=== PATIENT | male | born 1950 | race Caucasian/White ===

== ENCOUNTER 2017-01-28 05:55 | Day surgery (SDC) | payer BC ==
[~2017-01-28] VITALS: Ht 175.3 cm; Wt 77.4 kg
[~2017-01-28 05:55] MED LIST: ALEVE220 M1 PO; ASPIRIN EC81 MG; BUSPIRONE HCL15 MG PO; CLARITIN10 MG PO; ESCITALOPRAM OX20 MG PO; FARXIGA10 MG PO; FLONASE ALLERG9.9 ML NS; GLIPIZIDE XL10 MG PO; IBUPROFEN800 MG PO; JANUVIA100 MG PO; LISINOPRIL10 MG PO; METFORMIN HCL500 MG PO; MINIPRESS1 MG PO; NORCO 10-325 T1 EACH PO; OXYCODONE HCL5 MG PO; SIMVASTATIN20 MG PO; TERBINAFINE HC250 MG PO
--- NOTE | 2017-01-28 07:47 | NUR ---
PT RESTING COMFORTABLY-ALERT AND ORIENTED. PT MENTIONED HE HAD 2 DAYS OF PREP BECAUSE OF A SCHEDULING ERROR ON HIS PART-SEEMED TO TAKE EVERYTHING IN STRIDE. SCOPE TODAY IS "ROUTINE". HE HAS HAD PREVIOUS SCOPES, NO NEEDS AT THIS POINT EXCEPT TO GO TO THE BATHROOM FOLLOWING PRAYER.
--- NOTE | 2017-01-28 08:17 | NUR ---
01/28/17 0817 Calista Elizondo 0811-PATIENT ARRIVED TO PACU ON 6L OXYMASK O2 SAT 97% PATIENT NONAROUSABLE. LAYING ON LEFT LATERAL SIDE. SR. GLUCOSE CHECKED 143
--- NOTE | 2017-01-30 14:06 | OR ---
[facility] [address], [place] [address] Signed DATE OF SERVICE: 01/28/2017 PREOPERATIVE DIAGNOSIS: Screening. POSTOPERATIVE DIAGNOSES: A 5-mm sessile polyp at proximal right colon. Right and left-sided jyfknca-kh-wrmcgtmx diverticulosis. PROCEDURE: Colonoscopy with hot biopsy and placement of clip. ESTIMATED BLOOD LOSS: Minimal. INDICATIONS: John is a 66-year-old gentleman who came to us for a followup screening colonoscopy. He had a negative screening colonoscopy around 55 while living in [place]. In the meantime, he has no lower GI complaints. There was no family history of colon cancer or polyps. I met with John in the office and I gave him a pamphlet on colonoscopy. We reviewed the nature of the test along with its risks including, but not limited to gas bloating, crampy abdominal pain, bleeding, perforation requiring surgery, and missed diagnosis. We also discussed the need for IV conscious sedation. He had expressed understanding and wished to proceed. PROCEDURE NOTE: John was taken into our endoscopy suite and placed in the left lateral decubitus position. Given his daily need for buspirone and escitalopram in conjunction with his obsessive-compulsive disorder, we knew our standard Versed and fentanyl would not be enough to get him asleep. Consequently, we had our anesthesia provider help us with infusion of propofol. Once he was adequately sedated, digital rectal exam was performed. It does have some induration to his prostate consistent with his age. The adult colonoscope was introduced and advanced all around into the cecum under direct visualization of the camera. We did use some abdominal compression in the left lower quadrant in order to advance the scope. The prep was good. We saw a diverticulum opposite the ileocecal valve and just 1 or 2 folds past the ileocecal valve, he had a sessile polyp on the ascending colon. We removed it with several bites of the hot biopsy forceps. It did bleed a little, so we went ahead and placed a clip and that stopped the bleeding quite nicely. The scope was then slowly withdrawn and we saw no other polyps in the colon or rectum. He does have diverticula in the sigmoid colon and again they are moderate in size and jfuetzz-bo-abrbedyv in number and scattered about. The rectum itself was unremarkable. Upon retroflexion of the scope, we did not see any additional pathology above the anal canal. After this, the gas was suctioned out and the colonoscope removed. John tolerated procedure quite well. Electronically Signed By: SAM GUTIERREZ MD 01/30/17 1406 PATIENT NAME: JOHN GIBSON OPERATIVE REPORT DATE OF : 54 PHYSICIAN: SAM GUTIERREZ MD REPORT #: [id number] REPORT IS CONFIDENTIAL AND NOT TO BE RELEASED WITHOUT AUTHORIZATION [facility] [address] [place] [id number] Signed RECOMMENDATIONS: I will see Constantino back in my office in 7-14 days to review his results. MD ENRIQUE Sin/Elisabetl /[id number] cc: MD Lazaro Sin Electronically Signed By: SAM GUTIERREZ MD 01/30/17 1406 PATIENT NAME: JOHN GIBSON OPERATIVE REPORT DATE OF : 54 PHYSICIAN: SAM GUTIERREZ MD REPORT #: [id number] REPORT IS CONFIDENTIAL AND NOT TO BE RELEASED WITHOUT AUTHORIZATION
== END 2017-01-28 08:56 | disposition home or self-care (01) ==
LOC: DS 05:55 → OPS 05:55 → DS 06:45 → OPS 08:56
PROVIDERS: Colon & Rectal Surgery
PROC: 0DBK8ZX Excision of Ascending Colon, Via Natural or Artificial Opening Endoscopic, Diagnostic (ICD-10-PCS; principal; 2017-01-28 06:45)
DX: Z12.11 Encounter for screening for malignant neoplasm of colon (principal); D12.2 Benign neoplasm of ascending colon; I10 Essential (primary) hypertension; E78.5 Hyperlipidemia, unspecified; E11.9 Type 2 diabetes mellitus without complications; F10.21 Alcohol dependence, in remission; Z86.19 Personal history of other infectious and parasitic diseases; Z98.890 Other specified postprocedural states; Z79.899 Other long term (current) drug therapy
CPT/HCPCS: 00810; J2250; J3010; J7120

== ENCOUNTER → 2017-05-19 | Emergency (ER) | payer BC, OTHER ==
[~2017-05-19] VITALS: Ht 175.3 cm; Wt 77.4 kg
== END ==
LOC: ED 14:06
DX: M54.16 Radiculopathy, lumbar region (principal); G89.29 Other chronic pain; E11.9 Type 2 diabetes mellitus without complications; Z87.891 Personal history of nicotine dependence; Z79.84 Long term (current) use of oral hypoglycemic drugs; Z79.899 Other long term (current) drug therapy
CPT/HCPCS: 99283

== ENCOUNTER 2022-06-12 08:49 | Observation (INO) | payer MEDICARE, BC, OTHER ==
[~2022-06-12] VITALS: Ht 175.3 cm; Wt 72.6 kg
--- OUTSIDE RECORDS SUMMARY | 2022-06-12 08:52 | XMS ---
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 Melissa has no Care Guidelines for this patient. Claudia VISIT COUNT (12 MO.) 1 ALEKSEY Paz TOTAL 1 NOTE: Visits indicate total known visits. ED/UCC VISIT TRACKING (12 MO.) 06/12/2022 08:50 [facility] [place] TYPE: Emergency COMPLAINT: - ABNORMAL LABS INPATIENT VISIT TRACKING (12 MO.) No inpatient visits to display in this time frame [email or web address]
[2022-06-12] MEDS ORDERED: BELBUCA600 MCG SL (09:14)
--- NOTE | 2022-06-12 17:50 | NUR ---
PT RESTING AND EATING DINNER. PT WATCHING TV. PT DENIES CONCERNS.
[2022-06-12] MEDS ORDERED: DULCOLAX STOOL100 M1 PO (18:44)
--- NOTE | 2022-06-12 18:49 | NUR ---
PT UP TO BATHROOM AND BOWEL MOVEMENT NOTED. MEDICATION GIVEN. PT CALLED BROTHER. ALL QUESTIONS ANSWERED AND CALL LIGHT WITHIN REACH.
--- NOTE | 2022-06-12 19:48 | NUR ---
Received report from offgoing shift, hourly rounding initiated
--- NOTE | 2022-06-12 22:50 | NUR ---
IN PT ROOM FOR ROUNDING. PT RESTING ON BACK, BREATHING EVEN AND UNLABORED. NO INDICATIONS OF PAIN OR DISCOMFORT. CALL LIGHT IN REACH
--- NOTE | 2022-06-13 00:12 | NUR ---
IN PT ROOM FOR ROUNDING. PT BREATHING EVEN AND UNLABORED, NO INDICATION OF PAIN OR DICOMFORT. PT CALL LIGHT IN REACH.
--- NOTE | 2022-06-13 03:20 | NUR ---
IN PT ROOM FOR ROUNDING
--- NOTE | 2022-06-13 05:43 | NUR ---
IN PT ROOM FOR MEDICATION ADMINISTRATION. PT STATES "SLEPT GOOD LAST NIGHT". PT MEDICATION COMPLIANT, WHILE OXYGEN OFF CONTINUED TO SAT AT 94%. PT HAS NO COMPLAINT OF PAIN OR DISCOMFORT, CALL LIGHT IN REACH, EXPECTED TO DISCHARGE TODAY.
--- NOTE | 2022-06-13 07:20 | NUR ---
BEDSIDE HANDOFF REPORT RECEIVED FROM TILTING HEAD BAND SAWYER RN. PT SLEEPING, LEFT UNDISTURBED.
--- NOTE | 2022-06-13 08:36 | NUR ---
PATIENT REFUSED TO GET IN CHAIR THIS AM. ACU CHECK COMPLETED. PT HAS NO OTHER NEEDS AT THIS TIME. CALL LIGHT WITHIN REACH.
--- NOTE | 2022-06-13 08:45 | NUR ---
PT RESTING IN BED, EATING BREAKFAST. PT ON ROOM AIR, LUNG SOUNDS CLEAR WITH DIMINISHED BASES. PT WITH CHRONIC BACK PAIN, 5/10, GIVEN BUPRENORPHINE PER ORDER. BOWEL TONES ACTIVE, DENIES NAUSEA. CMS INTACT, WITHOUT EDEMA. IV SALINE LOCKED. PT REFUSING INSULIN THIS AM, BG 174, DISCUSSED INDICATION FOR INSULIN ESPECIALLY WITH IV STEROIDS. DISCUSSED PLAN OF CARE FOR THE DAY, PT HOPING TO DISCHARGE WITH OXYGEN. PT DENIES OTHER NEEDS AT THIS TIME.
[2022-06-13] MEDS ORDERED: IBUPROFEN600 MG PO (09:28)
[2022-06-13] MEDS ORDERED: PRAZOSIN HCL2 MG PO (09:29)
[2022-06-13] MEDS ORDERED: GABAPENTIN100 MG PO (09:29)
[2022-06-13] MEDS ORDERED: ATORVASTATIN CA20 MG PO (09:30)
[2022-06-13] MEDS ORDERED: B-121000 MC2 PO (09:31)
[2022-06-13] MEDS ORDERED: VITAMIN C500 M1 PO (09:32)
[2022-06-13] MEDS ORDERED: LISINOPRIL2.5 MG PO (09:33)
[2022-06-13] MEDS ORDERED: FLUTICASONE PRO16 GM NAS (09:33)
[2022-06-13] MEDS ORDERED: CITALOPRAM HBR40 MG PO (09:35)
--- NOTE | 2022-06-13 10:13 | NUR ---
PATIENT IN BED AFTER MEAL. VITALS AND I/O'S COMPLETED. PT HAS NO OTHER NEEDS AT THIS TIME. CALL LIGHT WITHIN REACH.
--- NOTE | 2022-06-13 11:31 | NUR ---
PATIENT WAS WATCHING TV. STATES HE PLANS IS TO GO HOME TO AN APARTMENT ON THE RESERVATION. PATIENT WOULD LIKE MEALS DELIVERED TO HIS APARTMENT.CAPO HANDOUT GIVEN FOR MEALS ON WHEELS.
--- NOTE | 2022-06-13 12:15 | NUR ---
PT WITH BLOOD GLUCOSE 308, BLOOD GLUCOSE RECHECKED 247. PT AGREEABLE TO INSULIN FOR LUNCH. PT DENIES OTHER NEEDS AT THIS TIME.
--- NOTE | 2022-06-13 12:45 | NUR ---
DR. CARLOS UPDATED ON PT STATUS, MD AT BEDSIDE.
[2022-06-13] MEDS ORDERED: AMOX TR-K CLV1 EAC1 PO (12:54)
[2022-06-13] MEDS ORDERED: DOXYCYCLINE HY100 MG PO (12:55)
[2022-06-13] MEDS ORDERED: IPRAT-ALBUT 0.5-3 ML INH (12:55)
[2022-06-13] MEDS ORDERED: PREDNISONE20 MG PO (12:57)
[2022-06-13] MEDS ORDERED: NEBULIZER UNIT XX (12:58)
[2022-06-13] MEDS ORDERED: IRON325 M1 PO (13:26)
--- NOTE | 2022-06-13 13:27 | NUR ---
MED REC COMPLETE
--- NOTE | 2022-06-13 14:05 | NUR ---
PATIENT IN BED AFTER MEAL. VITALS AND I/O'S COMPLETED, ICE WATER GIVEN. PT HAS NO OTHER NEEDS AT THIS TIME. CALL LIGHT WITHIN REACH.
--- NOTE | 2022-06-13 14:56 | NUR ---
DISCHARGE INSTRUCTIONS REVIEWED WITH PT. IV REMOVED, TIP INTACT, PRESSURE HELD. PT BELONGINGS RETURNED AND PT GETTING DRESSED.
--- NOTE | 2022-06-14 19:01 | EKG ---
[facility] [address] [facility] [place] [address] Signed Normal sinus rhythm Normal ECG When compared with ECG of 23-JAN-2017 13:27, No significant change was found Confirmed by MICHAEL CARLOS MD ([id number]) on 06/14/2022 7:01:17 PM Electronically Signed By: MICHAEL CARLOS MD 06/14/221900 PATIENT NAME: HATTIE GIBOSN GRIFFIN Electrocardiogram DATE OF : 54 PHYSICIAN: MICHAEL CARLOS MD REPORT #: [id number] REPORT IS CONFIDENTIAL AND NOT TO BE RELEASED WITHOUT AUTHORIZATION
== END 2022-06-13 15:20 | disposition home or self-care (01) ==
LOC: ED 08:49 → MS 08:51
PROVIDERS: ADMIT Internal Medicine; ATTEND Internal Medicine
DX: J84.10 Pulmonary fibrosis, unspecified (principal); J96.21 Acute and chronic respiratory failure with hypoxia; J18.9 Pneumonia, unspecified organism; E83.42 Hypomagnesemia; E11.9 Type 2 diabetes mellitus without complications; E78.5 Hyperlipidemia, unspecified; F41.9 Anxiety disorder, unspecified; I10 Essential (primary) hypertension; G89.29 Other chronic pain; M54.9 Dorsalgia, unspecified; Z87.891 Personal history of nicotine dependence; Z79.84 Long term (current) use of oral hypoglycemic drugs; Z20.822 Contact with and (suspected) exposure to COVID-19; F11.90 Opioid use, unspecified, uncomplicated
CPT/HCPCS: 36415; 71045; 71260; 80053; 83036; 83735; 83880; 84484; 85025; 87502; 93005; 93010; 94640; 94760; 94761; 96372; 96374; 96376; 99285-25; C9803; G0378; J1650; J1815; J2930; Q9967; U0003

== ENCOUNTER 2022-06-17 13:37 | Emergency (ER) | payer MEDICARE, BC, OTHER ==
[~2022-06-17] VITALS: Ht 175.3 cm; Wt 72.6 kg
[~2022-06-17 13:37] MED LIST changes: +AMOX TR-K CLV1 EAC1 PO; +ATORVASTATIN CA20 MG PO; +B-121000 MC2 PO; +BELBUCA600 MCG SL; +CITALOPRAM HBR40 MG PO; +DOXYCYCLINE HY100 MG PO; +DULCOLAX STOOL100 M1 PO; +FLUTICASONE PRO16 GM NAS; +GABAPENTIN100 MG PO; +IBUPROFEN600 MG PO; +IPRAT-ALBUT 0.5-3 ML INH; +IRON325 M1 PO; +LISINOPRIL2.5 MG PO; +NEBULIZER UNIT XX; +PRAZOSIN HCL2 MG PO; +PREDNISONE20 MG PO; +VITAMIN C500 M1 PO
--- OUTSIDE RECORDS SUMMARY | 2022-06-17 13:40 | XMS ---
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 Melissa has no Care Guidelines for this patient. Claudia V[facility] COUNT (12 MO.) 2 [facility] NOTE: Visits indicate total known visits. ED/C VISIT TRACKING (12 MO.) [facility]17[facility]2022 13:[facility] Emergency COMPLAINT: - FALL, BACK INJURY 06/12/2022 08:50 [facility] OR TYPE: Emergency COMPLAINT: - ABNORMAL LABS INPATIENT VISIT TRACKING (12 MO.) 06/12/2022 08:51 A[facility] OR TYPE: Observation COMPLAINT: - HYPOXIC RESPIRATORY FAILURE DIAGNOSES: - Contact with and (suspected) exposure to COVID-19 - Personal history of nicotine dependence - Pulmonary fibrosis, unspecified - Opioid use, unspecified, uncomplicated - Hyperlipidemia, unspecified - Other chronic pain - Acute and chronic respiratory failure with hypoxia - care home (current) use of oral hypoglycemic drugs - Shortness of breath - Type 2 diabetes mellitus without complications - Essential (primary) hypertension - Anxiety disorder, unspecified - Hypomagnesemia - Pneumonia, unspecified organism - Dorsalgia, unspecified [email or web address]
[2022-06-17] MEDS ORDERED: LIDODERM1 EACH TOP (14:09)
== END 2022-06-17 16:18 | disposition home or self-care (01) ==
LOC: ED 13:37
DX: S39.012A Strain of muscle, fascia and tendon of lower back, initial encounter (principal); M48.56XA Collapsed vertebra, not elsewhere classified, lumbar region, initial encounter for fracture; W19.XXXA Unspecified fall, initial encounter; Z87.891 Personal history of nicotine dependence; Z79.84 Long term (current) use of oral hypoglycemic drugs; Z79.899 Other long term (current) drug therapy
CPT/HCPCS: 72100; 72131